=== PATIENT | female | born 1995 | race Two or more races ===

== ENCOUNTER 2017-04-20 16:37 | Emergency (ER) | payer OTHER ==
[2017-04-20 17:45] LABS: URINE SOURCE CLEAN CATCH
[2017-04-20 17:51] LABS: URINE APPEARANCE CLEAR; URINE BILIRUBIN NEG (NEG); URINE BLOOD 3+ (NEG); URINE COLOR DK YELLOW; URINE GLUCOSE NEG (NEG); URINE KETONE TRACE (NEG); URINE LEUKOCYTE ESTERASE 1+ (NEG); URINE NITRATE NEG (NEG); URINE PH 6.5 (5-8); URINE PROTEIN TRACE (NEG); URINE SPECIFIC GRAVITY 1.031 (1.003-1.035)
[2017-04-20 17:54] LABS: CULTURE INDICATED? YES; URBCS1 AUWI INNUM /[HPF] (0-2); URINE BACTERIA AUWI 1+ (NEGATIVE); URINE SQUAMOUS EPITHELIAL CELL FEW /[HPF]
[2017-04-24 11:19] LABS: CHLAMYDIA TRACH Not Detected (Not Detected); N GONOR Not Detected (Not Detected)
== END 2017-04-20 19:17 | disposition home or self-care (01) ==
LOC: CED 16:37
PROVIDERS: Emergency Medicine
DX: B37.9 Candidiasis, unspecified (principal); F17.210 Nicotine dependence, cigarettes, uncomplicated
CPT/HCPCS: 81003; 84703; 87086; 87491; 87591; 87808; 87905; 99284